=== PATIENT | female | born 1990 | race Caucasian/White ===

== ENCOUNTER 2018-08-10 14:19 | Emergency (ER) | payer OTHER ==
[2018-08-10 14:50] VITALS: RESP 18
[2018-08-10] MEDS ORDERED: SODIUM CHLORIDE 0.9% 2,000 ML IV STA (15:48)
--- NOTE | 2018-08-10 16:09 | ED ---
General Adult HPI - General Chief complaint: Abdominal Pain Stated complaint: vomiting & abdominal pain/14 wks preg Time Seen by Provider: 08/10/18 15:48 Source: patient, RN notes reviewed Mode of arrival: ambulatory Limitations: no limitations - History of Present Illness Initial comments: 28-year-old female presents emergency Department chief complaint of nausea vomiting abdominal pressure. Patient's issues A0 approximately 14 weeks states that she has been 6 and states that she feels very rundown. She states she has a six-month at home that she has been keeping her up. Patient states that she noticed recently she feels pressure in her pelvic region and was concerned. Patient has had prior ultrasound which showed a IUP. Patient denies any vaginal bleeding or vaginal discharge at this time no dysuria no hematuria. Patient states that she did tell her [facility] ADMIN about her nausea vomiting and was given Phenergan. Patient denies any fevers or chills. - Related Data Home Medications Medication Instructions Recorded Confirmed Gabapentin 600 mg PO TID 08/10/18 08/10/18 Methadone HCl [Methadone Intensol] 105 mg PO QAM 08/10/18 08/10/18 Pnv No.95/Ferrous Fum/Folic AC 2 tab PO DAILY 08/10/18 08/10/18 [ Multivitamin Tablet] Allergies Allergy/AdvReac Type Severity Reaction Status Date / Time No Known Allergies Allergy Verified 08/10/18 15:52 Review of Systems ROS Statement: Those systems with pertinent positive or pertinent negative responses have been documented in the HPI. ROS Other: All systems not noted in ROS Statement are negative. General Exam Limitations: no limitations General appearance: alert, in no apparent distress Head exam: Present: atraumatic, normocephalic, normal inspection ENT exam: Present: mucous membranes moist Neck exam: Present: normal inspection. Absent: tenderness, meningismus, lymphadenopathy Respiratory exam: Present: normal lung sounds bilaterally. Absent: respiratory distress, wheezes, rales, rhonchi, stridor Cardiovascular Exam: Present: regular rate, normal rhythm, normal heart sounds. Absent: systolic murmur, diastolic murmur, rubs, gallop, clicks GI/Abdominal exam: Present: soft, normal bowel sounds. Absent: distended, tenderness, guarding, rebound, rigid Back exam: Absent: CVA tenderness (R), CVA tenderness (L) Skin exam: Present: warm, dry, intact, normal color. Absent: rash Course Vital Signs 08/10/18 14:46 Temperature 98.1 F Pulse Rate 101 H Respiratory 18 Rate Blood Pressure 97/59 O2 Sat by Pulse 96 Oximetry Medical Decision Making - Medical Decision Making 28-year-old female presented emergency Department chief complaint of nausea vomiting in . Patient is found to be dehydrated. Patient is improved after 3 L of normal saline was able tolerate food emergency department. Patient and ultrasound which showed no acute abnormality. Patient will follow- up with [facility] ADMIN. Return parameters discussed. - Lab Data Result diagrams: 08/10/18 16:19 08/10/18 16:19 Lab Results 08/10/18 08/10/18 08/10/18 Range/Units 16:19 16:19 16:38 WBC 13.4 H (3.8-10.6) k/uL RBC 4.30 (3.80-5.40) m/uL Hgb 13.4 (11.4-16.0) gm/dL Hct 40.3 (34.0-46.0) % MCV 93.8 (80.0-100.0) fL MCH 31.2 (25.0-35.0) pg MCHC 33.3 (31.0-37.0) g/dL RDW 12.9 (11.5-15.5) % Plt Count 347 (150-450) k/uL Neutrophils % 75 % Lymphocytes % 18 % Monocytes % 3 % Eosinophils % 2 % Basophils % 0 % Neutrophils # 10.0 H (1.3-7.7) k/uL Lymphocytes # 2.4 (1.0-4.8) k/uL Monocytes # 0.4 (0-1.0) k/uL Eosinophils # 0.2 (0-0.7) k/uL Basophils # 0.0 (0-0.2) k/uL Sodium 136 L (137-145) mmol/L Potassium 4.4 (3.5-5.1) mmol/L Chloride 104 (98-107) mmol/L Carbon Dioxide 25 (22-30) mmol/L Anion Gap 7 mmol/L BUN 11 (7-17) mg/dL Creatinine 0.47 L (0.52-1.04) mg/dL Est GFR (CKD-EPI)AfAm >90 (>60 ml/min/1.73 sqM) Est GFR (CKD-EPI)NonAf >90 (>60 ml/min/1.73 sqM) Glucose 70 L (74-99) mg/dL Calcium 9.7 (8.4-10.2) mg/dL Total Bilirubin 0.6 (0.2-1.3) mg/dL AST 30 (14-36) U/L ALT 34 (9-52) U/L Alkaline Phosphatase 59 (38-126) U/L Total Protein 6.9 (6.3-8.2) g/dL Albumin 3.8 (3.5-5.0) g/dL Amylase 37 (30-110) U/L Lipase 24 (23-300) U/L Urine Color Yellow Urine Appearance Cloudy H (Clear) Urine pH 6.0 (5.0-8.0) Ur Specific [place] 1.025 (1.001-1.035) Urine Protein Trace H (Negative) Urine Glucose (UA) Negative (Negative) Urine Ketones 4+ H (Negative) Urine Blood Negative (Negative) Urine Nitrite Negative (Negative) Urine Bilirubin Negative (Negative) Urine Urobilinogen 3.0 (<2.0) mg/dL Ur Leukocyte Esterase Moderate H (Negative) Urine RBC 2 (0-5) /hpf Urine WBC 5 (0-5) /hpf Ur Squamous Epith Cells 19 H (0-4) /hpf Urine Bacteria Occasional H (None) /hpf Urine Mucus Many H (None) /hpf Disposition Clinical Impression: Nausea/vomiting in , Dehydration Disposition: HOME SELF-CARE Condition: Stable Instructions: Nausea and Vomiting in (ED) Additional Instructions: Please return to the Emergency Department if symptoms worsen or any other concerns. Is patient prescribed a controlled substance at d/c from ED?: No Referrals: Tana Radford MD [Primary Care Provider] - 1-2 days Time of Disposition: 17:37
[2018-08-10 16:39] LABS: Basophils % (A) 0 %; Eosinophils # (A) 0.2 k/uL (0-0.7); Eosinophils % (A) 2 %; HCT 40.3 % (34.0-46.0); HGB 13.4 gm/dL (11.4-16.0); Lymphocytes # (A) 2.4 k/uL (1.0-4.8); Lymphocytes % (A) 18 %; MCH 31.2 pg (25.0-35.0); MCHC 33.3 g/dL (31.0-37.0); MCV 93.8 fL (80.0-100.0); Mean Platelet Volume 6.5; Monocytes # (A) 0.4 k/uL (0-1.0); Monocytes % (A) 3 %; Neutrophils % (A) 75 %; Platelet Count 347 k/uL (150-450); RDW 12.9 % (11.5-15.5); WBC 13.4 k/uL (3.8-10.6)
[2018-08-10 16:44] LABS: Appearance,Urine Cloudy (Clear); Bacteria,Urine Occasional /hpf; Bilirubin,Urine Negative (Negative); Blood,Urine Negative (Negative); Color,Urine Yellow; Glucose,Urine (UA) Negative (Negative); Ketones,Urine 4+ (Negative); Leukocyte Esterase,Urine Moderate (Negative); Mucus,Urine Many /hpf; Nitrite,Urine Negative (Negative); Protein,Urine Trace (Negative); RBC,Urine 2 /hpf (0-5); Specific Gravity,Urine 1.025 (1.001-1.035); Squamous Epithelial Cell,Urine 19 /hpf (0-4); WBC,Urine 5 /hpf (0-5)
[2018-08-10 16:53] LABS: ALT 34 U/L (9-52); AST 30 U/L (14-36); Albumin 3.8 g/dL (3.5-5.0); Alkaline Phosphatase 59 U/L (38-126); Amylase 37 U/L (30-110); Anion Gap 7 mmol/L; Blood Urea Nitrogen 11 mg/dL (7-17); Calcium 9.7 mg/dL (8.4-10.2); Carbon Dioxide 25 mmol/L (22-30); Chloride 104 mmol/L (98-107); Glucose 70 mg/dL (74-99); Lipase 24 U/L (23-300); Potassium 4.4 mmol/L (3.5-5.1); Sodium 136 mmol/L (137-145); Total Bilirubin 0.6 mg/dL (0.2-1.3); Total Protein 6.9 g/dL (6.3-8.2)
--- NOTE | 2018-08-10 17:20 | US ---
EXAMINATION TYPE: US OB >= 14 wk fetus DATE OF EXAM: 08/10/2018 COMPARISON: None CLINICAL HISTORY: Pain TECHNIQUE: Transabdominal (TA) GESTATIONAL AGE / DATING Physician Established: (14 weeks/5 days) EDC: 02/03/19 Dates by LMP: LMP unknown Dates by First Scan: not available Dates by Current Scan: (14 weeks/6 days) EDC: 02/02/19 Beta HCG (if available): Not available at this time SURVEY IUP: Single PLACENTA: not well identified due to early date ELENA: 12.3 cm CERVICAL LENGTH (transabdominal: norm > 3.0cm): 3.0 cm BIOMETRY PRESENTATION: LIE: Breech BPD: 2.8 cm 14 weeks / 6 days HC: 10.3 cm 14 weeks / 6 days AC: 8.4 cm 14 weeks / 5 days FL: 1.6 cm 14 weeks / 4 days ESTIMATED WEIGHT IN GRAMS: 104 grams ESTIMATED WEIGHT IN LBS/OZ: 0 lbs. 4 oz. WEIGHT PERCENTAGE BASED ON ESTABLISHED DATES: 35% HC/AC: 1.2 FL/AC: 18.5 HEART RATE: 134 bpm RHYTHM: normal IMPRESSION: The ultrasound gestational age is 15 weeks 1 day. No complicating process seen.
[2018-08-10] MEDS ORDERED: SODIUM CHLORIDE 0.9% 1,000 ML IV ONE (17:32)
[2018-08-10 19:16] VITALS: BP 101/57; PULSE 92; TEMP 97.3
== END 2018-08-10 19:16 | disposition home or self-care (01) ==
LOC: EC 14:19
DX: O21.1 Hyperemesis gravidarum with metabolic disturbance (principal); O99.89 Other specified diseases and conditions complicating pregnancy, childbirth and the puerperium; R10.9 Unspecified abdominal pain; Z3A.15 15 weeks gestation of pregnancy; Z79.899 Other long term (current) drug therapy
CPT/HCPCS: 36415; 76805; 80053; 81001; 82150; 83690; 85025; 96360; 96361; 99284